=== PATIENT | female | born 2000 | race African-American/Black ===

== ENCOUNTER 2019-11-14 15:29 | Emergency (ER) | payer MEDICAID ==
[~2019-11-14] VITALS: Ht 170.2 cm; Wt 73.0 kg
[2019-11-14 15:30] VITALS: BP 118/67
[2019-11-14 17:10] LABS: HCG SCREEN NEGATIVE
== END 2019-11-14 17:05 | disposition left against medical advice (07) ==
LOC: ER 15:29
DX: Z53.21 Procedure and treatment not carried out due to patient leaving prior to being seen by health care provider (principal)
CPT/HCPCS: 81025; 84703